=== PATIENT | male | born 1960 | race American Indian/Alaskan Native ===

== ENCOUNTER 2018-02-23 00:39 | Day surgery (SDC) | payer OTHER, SELFPAY ==
[~2018-02-23 00:39] MED LIST: ANDROGEL; BUME2 PO; CARI350 PO; CHOL10002 PO; CLON.2 PO; CLON.5 PO; Carisoprodol350 MG PO; Clonazepam2 MG PO; Coumadin5 MG PO; DETOX PO; DEXA.5 PO; Dazidox10 MG; FLUT.05NI; HYDROMORPHONE; Hydrochlorothia25 MG PO; LEVSOD100 PO; LEVSOD150 PO; Laxative5 M1 PO; MILK THISTLE; MORP60ER PO; MORPHINE 11 MG/2 ML SC; MULVITMINF PO; Milk Thistle500 MG PO; Mobic15 MG PO; NAPR500 PO; OMEP40CA12 PO; ONDA4 PO; OXYC15ER PO; Omeprazole20 M1 PO; Oxycodone HCl20 M1 PO; POTCHL10ER PO; PRED5 PO; PROCODE120 PO; Papaya Enzyme1 EAC1 PO; Prednisone20 MG PO; Prinivil10 MG PO; Prozac20 MG PO; Selenium100 MCG PO; TEMA15 PO; TESTOSTERONE5 GM TOP; TRAM50 PO
== END 2018-02-23 14:32 | disposition home or self-care (01) ==
LOC: ATC 00:39
DX: I82.409 Acute embolism and thrombosis of unspecified deep veins of unspecified lower extremity (principal); E05.00 Thyrotoxicosis with diffuse goiter without thyrotoxic crisis or storm; Z87.891 Personal history of nicotine dependence
CPT/HCPCS: 85610; 96372; J1650

== ENCOUNTER 2018-02-24 00:20 | Day surgery (SDC) | payer OTHER, SELFPAY | END 2018-02-24 16:45 | disposition home or self-care (01) | LOC: ATC 00:20 | DX: I82.409 Acute embolism and thrombosis of unspecified deep veins of unspecified lower extremity (principal); E05.00 Thyrotoxicosis with diffuse goiter without thyrotoxic crisis or storm; F32.9 Major depressive disorder, single episode, unspecified; F41.9 Anxiety disorder, unspecified; K21.9 Gastro-esophageal reflux disease without esophagitis; Z87.891 Personal history of nicotine dependence | CPT/HCPCS: 36416; 85610; 96372; J1650 ==

== ENCOUNTER 2018-02-25 01:29 | Day surgery (SDC) | payer OTHER, SELFPAY | END 2018-02-25 16:52 | disposition home or self-care (01) | LOC: ATC 01:29 | DX: I82.409 Acute embolism and thrombosis of unspecified deep veins of unspecified lower extremity (principal); E05.00 Thyrotoxicosis with diffuse goiter without thyrotoxic crisis or storm; F32.9 Major depressive disorder, single episode, unspecified; F41.9 Anxiety disorder, unspecified | CPT/HCPCS: 36416; 85610; 96372; J1650 ==

== ENCOUNTER 2018-02-26 00:17 | Day surgery (SDC) | payer OTHER, SELFPAY | END 2018-02-26 16:41 | disposition home or self-care (01) | LOC: ATC 00:17 | DX: I82.409 Acute embolism and thrombosis of unspecified deep veins of unspecified lower extremity (principal); E05.00 Thyrotoxicosis with diffuse goiter without thyrotoxic crisis or storm; E03.9 Hypothyroidism, unspecified; K21.9 Gastro-esophageal reflux disease without esophagitis | CPT/HCPCS: 96372; J1650 ==

== ENCOUNTER 2018-02-27 00:06 | Day surgery (SDC) | payer OTHER, SELFPAY | END 2018-02-27 07:50 | disposition home or self-care (01) | LOC: ATC 00:06 | DX: I82.409 Acute embolism and thrombosis of unspecified deep veins of unspecified lower extremity (principal); E05.00 Thyrotoxicosis with diffuse goiter without thyrotoxic crisis or storm; K21.9 Gastro-esophageal reflux disease without esophagitis; Z87.891 Personal history of nicotine dependence; F41.9 Anxiety disorder, unspecified; F32.9 Major depressive disorder, single episode, unspecified | CPT/HCPCS: 36416; 85610; 99211; J1650 ==

== ENCOUNTER 2018-03-07 04:58 | Emergency (ER) | payer OTHER, SELFPAY ==
[~2018-03-07] VITALS: Ht 185.4 cm; Wt 113.4 kg
[2018-03-07] MEDS ORDERED: XARELTO20 MG PO (05:07)
[2018-03-07 06:19] LABS: BASOPHILS ABSOLUTE AUTO 0.02 K/mm3 (0.00-0.23); BASOPHILS PERCENT AUTO 0 % (0-2); EOSINOPHILS ABSOLUTE AUTO 0.28 K/mm3 (0.00-0.68); EOSINOPHILS PERCENT AUTO 5 % (0-6); Hemoglobin 12.3 g/dL (13.5-17.5); IMMATURE GRAN ABSOLUTE AUTO 0.03 K/mm3 (0.00-0.10); IMMATURE GRAN PERCENT AUTO 1 % (0-1); LYMPHOCYTES PERCENT AUTO 19 % (21-46); MONOCYTES ABSOLUTE AUTO 0.58 K/mm3 (0.16-1.47); MONOCYTES PERCENT AUTO 10 % (4-13); Mean Corpuscular HGB 29.8 pg (26.0-34.0); Mean Corpuscular HGB Conc 33.2 g/dL (31.5-36.5); Mean Corpuscular Volume 90 fL (80-100); Mean Platelet Volume 10.1 fL (9.1-12.4); NEUTROPHILS ABSOLUTE AUTO 3.65 K/mm3 (1.96-9.15); NEUTROPHILS PERCENT AUTO 65 % (41-73); Platelet Count 214 K/mm3 (150-400); RDW Standard Deviation 42.7 fL (35.1-46.3); Red Blood Cell Count 4.13 M/mm3 (4.30-5.90); White Blood Cell Count 5.66 K/mm3 (4.00-11.30)
[2018-03-07 06:39] LABS: Anion Gap 6 mmol/L (6-16); Blood Urea Nitrogen 12 mg/dL (8-24); Bun/Creatinine Ratio 18.2 (12.0-20.0); CO2, Blood 27 mmol/L (21-32); Calcium, Blood 8.6 mg/dL (8.5-10.1); Chloride, Blood 109 mmol/L (98-108); Creatinine, Blood 0.66 mg/dL (0.60-1.20); Glomerular Filtration Rate >60 (60-); Glucose, Blood 110 mg/dL (70-99); Sodium, Blood 142 mmol/L (136-145)
[2018-03-08] MEDS ORDERED: Cleocin HCl300 MG PO (08:58)
== END 2018-03-07 07:19 | disposition home or self-care (01) ==
LOC: ER 04:58
PROVIDERS: Emergency Medicine
DX: K04.7 Periapical abscess without sinus (principal); E03.9 Hypothyroidism, unspecified; E78.00 Pure hypercholesterolemia, unspecified; Z91.030 Bee allergy status; Z87.891 Personal history of nicotine dependence; Z79.82 Long term (current) use of aspirin; Z79.899 Other long term (current) drug therapy
CPT/HCPCS: 36415; 80048; 85025; 96365; 99283

== ENCOUNTER 2018-03-07 14:05 | Emergency (ER) | payer OTHER, SELFPAY ==
[~2018-03-07] VITALS: Ht 185.4 cm; Wt 113.4 kg
[~2018-03-07 14:05] MED LIST changes: +XARELTO20 MG PO
[2018-03-08] MEDS ORDERED: Cleocin HCl300 MG PO (08:58)
== END 2018-03-07 15:30 | disposition home or self-care (01) ==
LOC: ER 14:05
DX: K08.89 Other specified disorders of teeth and supporting structures (principal); E78.00 Pure hypercholesterolemia, unspecified; Z87.891 Personal history of nicotine dependence
CPT/HCPCS: 96365; 99282

== ENCOUNTER 2018-03-07 21:55 | Emergency (ER) | payer OTHER, SELFPAY ==
[~2018-03-07] VITALS: Ht 185.4 cm; Wt 113.4 kg
[2018-03-08] MEDS ORDERED: Cleocin HCl300 MG PO (08:58)
[2018-03-09] MEDS ORDERED: Cleocin HCl150 MG PO (00:39)
== END 2018-03-08 | disposition home or self-care (01) ==
LOC: ER 21:55
DX: K91.841 Postprocedural hemorrhage of a digestive system organ or structure following other procedure (principal); K12.0 Recurrent oral aphthae; E78.00 Pure hypercholesterolemia, unspecified; Z91.030 Bee allergy status; Z79.899 Other long term (current) drug therapy; Z87.891 Personal history of nicotine dependence
CPT/HCPCS: 96365; 99283

== ENCOUNTER 2018-03-08 07:58 | Emergency (ER) | payer OTHER, SELFPAY ==
[~2018-03-08] VITALS: Ht 185.4 cm; Wt 113.4 kg
[2018-03-08] MEDS ORDERED: Cleocin HCl300 MG PO (08:58)
[2018-03-09] MEDS ORDERED: Cleocin HCl150 MG PO (00:39)
== END 2018-03-08 09:20 | disposition home or self-care (01) ==
LOC: ER 07:58
DX: K04.7 Periapical abscess without sinus (principal); E78.00 Pure hypercholesterolemia, unspecified; Z91.030 Bee allergy status; Z79.899 Other long term (current) drug therapy; Z87.891 Personal history of nicotine dependence
CPT/HCPCS: 96365; 99282

== ENCOUNTER 2018-03-08 13:59 | Emergency (ER) | payer OTHER, SELFPAY ==
[~2018-03-08] VITALS: Ht 185.4 cm; Wt 113.4 kg
[~2018-03-08 13:59] MED LIST changes: +Cleocin HCl300 MG PO
[2018-03-09] MEDS ORDERED: Cleocin HCl150 MG PO (00:39)
== END 2018-03-08 15:09 | disposition home or self-care (01) ==
LOC: ER 13:59
DX: K04.7 Periapical abscess without sinus (principal); E78.00 Pure hypercholesterolemia, unspecified; Z91.030 Bee allergy status; Z79.899 Other long term (current) drug therapy; Z87.891 Personal history of nicotine dependence
CPT/HCPCS: 96365; 99282

== ENCOUNTER 2018-03-08 22:35 | Emergency (ER) | payer OTHER, SELFPAY ==
[~2018-03-08] VITALS: Ht 185.4 cm; Wt 113.4 kg
[2018-03-09] MEDS ORDERED: Cleocin HCl150 MG PO (00:39)
== END 2018-03-09 00:44 | disposition home or self-care (01) ==
LOC: ER 22:35
DX: K04.7 Periapical abscess without sinus (principal); E78.00 Pure hypercholesterolemia, unspecified; Z91.030 Bee allergy status; Z79.899 Other long term (current) drug therapy; Z79.52 Long term (current) use of systemic steroids; Z79.2 Long term (current) use of antibiotics
CPT/HCPCS: 96365; 99282

== ENCOUNTER 2018-04-30 14:29 | Emergency (ER) | payer OTHER ==
[~2018-04-30] VITALS: Ht 185.4 cm; Wt 117.9 kg
[~2018-04-30 14:29] MED LIST changes: +Cleocin HCl150 MG PO
[2018-04-30 15:14] LABS: BASOPHILS ABSOLUTE AUTO 0.03 K/mm3 (0.00-0.23); BASOPHILS PERCENT AUTO 0 % (0-2); EOSINOPHILS ABSOLUTE AUTO 0.25 K/mm3 (0.00-0.68); EOSINOPHILS PERCENT AUTO 4 % (0-6); Hematocrit 40.6 % (37.0-53.0); Hemoglobin 13.7 g/dL (13.5-17.5); IMMATURE GRAN ABSOLUTE AUTO 0.04 K/mm3 (0.00-0.10); IMMATURE GRAN PERCENT AUTO 1 % (0-1); LYMPHOCYTES ABSOLUTE AUTO 0.89 K/mm3 (0.84-5.20); LYMPHOCYTES PERCENT AUTO 13 % (21-46); MONOCYTES ABSOLUTE AUTO 0.49 K/mm3 (0.16-1.47); MONOCYTES PERCENT AUTO 7 % (4-13); Mean Corpuscular HGB 29.3 pg (26.0-34.0); Mean Corpuscular HGB Conc 33.7 g/dL (31.5-36.5); Mean Corpuscular Volume 87 fL (80-100); Mean Platelet Volume 10.1 fL (9.1-12.4); NEUTROPHILS ABSOLUTE AUTO 5.04 K/mm3 (1.96-9.15); NEUTROPHILS PERCENT AUTO 75 % (41-73); Platelet Count 238 K/mm3 (150-400); RDW Coefficient Variation 13.2 % (11.7-14.2); RDW Standard Deviation 42.1 fL (35.1-46.3); Red Blood Cell Count 4.67 M/mm3 (4.30-5.90); White Blood Cell Count 6.74 K/mm3 (4.00-11.30)
[2018-04-30] MEDS ORDERED: Synthroid112 MCG PO (15:16)
[2018-04-30] MEDS ORDERED: OXYC5 (15:17)
[2018-04-30] MEDS ORDERED: BUTALB-ACETAMI1 EACH PO (15:18)
[2018-04-30] MEDS ORDERED: Jantoven4 MG PO (15:18)
[2018-04-30 15:32] LABS: International Normalized Ratio 2.72; Prothrombin Time Results 29.2 Sec (9.7-11.5)
[2018-04-30 15:38] LABS: Alanine Aminotransfer (ALT/SGP 36 U/L (12-78); Albumin, Blood 3.8 g/dL (3.4-5.0); Alk Phos 103 U/L (50-136); Anion Gap 8 mmol/L (6-16); Aspartate Aminotrans (AST/SGOT 25 U/L (12-37); Bilirubin, Total 0.2 mg/dL (0.1-1.0); Blood Urea Nitrogen 18 mg/dL (8-24); Bun/Creatinine Ratio 24.9 (12.0-20.0); CO2, Blood 29 mmol/L (21-32); Calcium, Blood 8.7 mg/dL (8.5-10.1); Chloride, Blood 104 mmol/L (98-108); Creatinine, Blood 0.72 mg/dL (0.60-1.20); Globulin, Blood 3.8 g/dL (2.2-4.0); Glomerular Filtration Rate >60 (60-); Glucose, Blood 126 mg/dL (70-99); Potassium, Blood 3.7 mmol/L (3.5-5.5); Sodium, Blood 141 mmol/L (136-145); Total Protein, Blood 7.6 g/dL (6.4-8.2); Troponin I <0.015 ng/mL (0.000-0.040)
== END 2018-04-30 16:11 | disposition home or self-care (01) ==
LOC: ER 14:29
PROVIDERS: Internal Medicine
DX: R55 Syncope and collapse (principal); I10 Essential (primary) hypertension; E78.5 Hyperlipidemia, unspecified; Z79.899 Other long term (current) drug therapy; Z79.01 Long term (current) use of anticoagulants
CPT/HCPCS: 36415; 80053; 84484; 85025; 85610; 93005; 93010; 99283

== ENCOUNTER 2018-12-14 18:20 | Emergency (ER) | payer OTHER ==
[~2018-12-14 18:20] MED LIST changes: +BUTALB-ACETAMI1 EACH PO; +Jantoven4 MG PO; +OXYC5; +Synthroid112 MCG PO
[2018-12-15] MEDS ORDERED: Prednisone20 MG PO (03:09)
== END 2018-12-14 19:01 | disposition left against medical advice (07) ==
LOC: ER 18:20
DX: Z53.21 Procedure and treatment not carried out due to patient leaving prior to being seen by health care provider (principal)

== ENCOUNTER 2018-12-15 01:31 | Emergency (ER) | payer OTHER ==
[~2018-12-15] VITALS: Ht 185.4 cm; Wt 108.9 kg
[2018-12-15] MEDS ORDERED: Prednisone20 MG PO (03:09)
== END 2018-12-15 03:24 | disposition home or self-care (01) ==
LOC: ER 01:31
DX: M54.12 Radiculopathy, cervical region (principal); Z91.030 Bee allergy status; Z79.899 Other long term (current) drug therapy; Z79.52 Long term (current) use of systemic steroids; Z79.891 Long term (current) use of opiate analgesic; Z79.01 Long term (current) use of anticoagulants; E78.00 Pure hypercholesterolemia, unspecified; Z87.891 Personal history of nicotine dependence
CPT/HCPCS: 72040; 99283-25

== ENCOUNTER 2019-05-02 06:19 | Day surgery (SDC) | payer OTHER ==
[~2019-05-02] VITALS: Ht 188 cm; Wt 115.9 kg
--- NOTE | 2019-05-02 07:34 | NUR ---
05/02/19 0734 Rick Albarran BLOCK PLACED IN RIGHT HAND BY JELANI LAURENT.
== END 2019-05-02 09:00 | disposition home or self-care (01) ==
LOC: ORSCSDS 06:19
PROVIDERS: Orthopaedic Surgery
PROC: 01N50ZZ Release Median Nerve, Open Approach (ICD-10-PCS; principal; 2019-05-02 07:30)
DX: G56.01 Carpal tunnel syndrome, right upper limb (principal); I10 Essential (primary) hypertension; G47.33 Obstructive sleep apnea (adult) (pediatric); K21.9 Gastro-esophageal reflux disease without esophagitis; Z79.899 Other long term (current) drug therapy; Z79.01 Long term (current) use of anticoagulants
CPT/HCPCS: 36415; 85610; 85730; J0690; J2001; J2250; J3010; J7120

== ENCOUNTER 2019-05-03 02:55 | Emergency (ER) | payer OTHER ==
[~2019-05-03] VITALS: Ht 188 cm; Wt 117.9 kg
== END 2019-05-03 04:52 | disposition home or self-care (01) ==
LOC: ER 02:55
DX: M25.532 Pain in left wrist (principal); I10 Essential (primary) hypertension; E78.5 Hyperlipidemia, unspecified; E05.00 Thyrotoxicosis with diffuse goiter without thyrotoxic crisis or storm; M19.90 Unspecified osteoarthritis, unspecified site; Z91.030 Bee allergy status; Z91.09 Other allergy status, other than to drugs and biological substances; Z79.899 Other long term (current) drug therapy; Z79.01 Long term (current) use of anticoagulants
CPT/HCPCS: 99282

== ENCOUNTER 2023-07-13 09:07 | Day surgery (SDC) | payer OTHER ==
[~2023-07-13] VITALS: Ht 185.4 cm; Wt 129.4 kg
[~2023-07-13 09:07] MED LIST changes: +ADCIRCA20 MG PO; +ALPR.25 PO; -Jantoven4 MG PO; +TELM20 PO; +TESTOSTERONE75 GM TD; +WARF4 PO
[2023-07-13] MEDS ORDERED: Amlodipine Bes2.5 MG (09:33)
[2023-07-13] MEDS ORDERED: TAMS.4ER (09:33)
[2023-07-13] MEDS ORDERED: FERROUS SULFAT325 M3 (09:34)
[2023-07-13] MEDS ORDERED: VITAMIN D5000 UNIT (09:35)
[2023-07-13 13:29] VITALS: BP 106/60
--- NOTE | 2023-07-13 13:29 | NUR ---
07/13/23 1329 Sarai Smith IV AT 1220 WNL. PT TOLERATED WELL.
== END 2023-07-13 12:25 | disposition home or self-care (01) ==
LOC: ORSCSDS 09:07
PROVIDERS: Internal Medicine Gastroenterology
PROC: 0D758ZZ Dilation of Esophagus, Via Natural or Artificial Opening Endoscopic (ICD-10-PCS; principal; 2023-07-13 10:30)
PROC: 0DB58ZX Excision of Esophagus, Via Natural or Artificial Opening Endoscopic, Diagnostic (ICD-10-PCS; principal; 2023-07-13 10:30)
PROC: 0DBP8ZX Excision of Rectum, Via Natural or Artificial Opening Endoscopic, Diagnostic (ICD-10-PCS; principal; 2023-07-13 10:30)
PROC: 0DBM8ZX Excision of Descending Colon, Via Natural or Artificial Opening Endoscopic, Diagnostic (ICD-10-PCS; principal; 2023-07-13 10:30)
PROC: 0DB78ZX Excision of Stomach, Pylorus, Via Natural or Artificial Opening Endoscopic, Diagnostic (ICD-10-PCS; principal; 2023-07-13 10:30)
PROC: 0DBK8ZX Excision of Ascending Colon, Via Natural or Artificial Opening Endoscopic, Diagnostic (ICD-10-PCS; principal; 2023-07-13 10:30)
PROC: 0DB98ZX Excision of Duodenum, Via Natural or Artificial Opening Endoscopic, Diagnostic (ICD-10-PCS; principal; 2023-07-13 10:30)
DX: K22.70 Barrett's esophagus without dysplasia (principal); K21.9 Gastro-esophageal reflux disease without esophagitis; Z12.11 Encounter for screening for malignant neoplasm of colon; R13.10 Dysphagia, unspecified; Z86.010 Personal history of colon polyps; D12.8 Benign neoplasm of rectum; D12.4 Benign neoplasm of descending colon; D12.2 Benign neoplasm of ascending colon; K31.7 Polyp of stomach and duodenum; K57.30 Diverticulosis of large intestine without perforation or abscess without bleeding; I10 Essential (primary) hypertension; E05.00 Thyrotoxicosis with diffuse goiter without thyrotoxic crisis or storm; G47.33 Obstructive sleep apnea (adult) (pediatric); Z79.899 Other long term (current) drug therapy; E66.9 Obesity, unspecified; Z68.38 Body mass index [BMI] 38.0-38.9, adult; Z86.718 Personal history of other venous thrombosis and embolism; Z87.891 Personal history of nicotine dependence
CPT/HCPCS: 82947; 88305; 88341; 88342; J2704; J7120; Q9968

== ENCOUNTER 2023-11-30 04:28 | Day surgery (SDC) | payer OTHER ==
[~2023-11-30 04:28] MED LIST changes: +Amlodipine Bes2.5 MG PO; +FERROUS SULFAT325 M3; +TAMS.4ER; +VITAMIN D5000 UNIT
[2023-11-30 09:12] VITALS: BP 109/69
[2023-11-30] MEDS ORDERED: JARDIANCE10 MG PO (09:16)
== END 2023-11-30 10:01 | disposition home or self-care (01) ==
LOC: ATC 04:28
DX: E27.3 Drug-induced adrenocortical insufficiency (principal); E29.1 Testicular hypofunction; E89.0 Postprocedural hypothyroidism
CPT/HCPCS: 80400; 82533; 96372; J0834

== ENCOUNTER 2025-02-24 02:42 | Emergency (ER) | payer OTHER ==
[~2025-02-24] VITALS: Ht 185.4 cm; Wt 121.1 kg
[~2025-02-24 02:42] MED LIST changes: +JARDIANCE10 MG PO
[2025-02-24 03:09] VITALS: BP 137/77
[2025-02-24] MEDS ORDERED: Acetaminophen 500 MG Tab PO ONE (05:30)
[2025-02-24] MEDS ORDERED: Lidocaine 4% 1 Patch TOP ONE (05:30)
[2025-02-24] MEDS ORDERED: Ibuprofen 600 MG Tab PO ONE (05:30)
[2025-02-24] MEDS ORDERED: LIDO700A20 TOP (05:35)
[2025-02-24] MEDS ORDERED: Robaxin750 MG PO (05:35)
[2025-02-24] MEDS ORDERED: DIAZ2 PO (05:35)
== END 2025-02-24 06:07 | disposition home or self-care (01) ==
LOC: ER 02:42
DX: S13.4XXA Sprain of ligaments of cervical spine, initial encounter (principal); V89.2XXA Person injured in unspecified motor-vehicle accident, traffic, initial encounter; Z87.891 Personal history of nicotine dependence; I10 Essential (primary) hypertension; E78.5 Hyperlipidemia, unspecified; Z79.899 Other long term (current) drug therapy; Z79.890 Hormone replacement therapy; Z79.84 Long term (current) use of oral hypoglycemic drugs
CPT/HCPCS: 70450; 71046; 72125; 99284-25; A9270

== ENCOUNTER 2025-09-08 08:00 | Day surgery (SDC) | payer OTHER ==
[~2025-09-08 08:00] MED LIST changes: +Cosyntropin 0.25 MG / ML 1ML Vial IM SCH; +DIAZ2 PO; +LIDO700A20 TOP; +Robaxin750 MG PO
[2025-09-08 08:41] VITALS: BP 150/84
== END 2025-09-08 09:43 | disposition home or self-care (01) ==
LOC: ATC 08:00
DX: E27.3 Drug-induced adrenocortical insufficiency (principal); E11.9 Type 2 diabetes mellitus without complications; I10 Essential (primary) hypertension; E89.0 Postprocedural hypothyroidism; E29.1 Testicular hypofunction; F43.12 Post-traumatic stress disorder, chronic; E66.01 Morbid (severe) obesity due to excess calories; Z68.37 Body mass index [BMI] 37.0-37.9, adult; Z87.891 Personal history of nicotine dependence; Z79.890 Hormone replacement therapy; Z79.899 Other long term (current) drug therapy
CPT/HCPCS: 36415; 80400; 82533; 96372; J0834